=== PATIENT | male | born 1970 | race African-American/Black ===

== ENCOUNTER → 2016-10-28 | Outpatient (CLI) | payer BC ==
[~2016-10-28] MED LIST: ACET325T9 PO; AMLO10TA2 PO; GABA-586 PO; HYDR-2666 PO; IBUP200T77 PO; IOHEXOL 300 MG/ML 50 ML VIAL. IT ONE; LIDOCAINE 1%/EPI 1:100,000 20 ML VIAL. SQ ONE; LOSA100T6 PO
--- NOTE | 2016-10-28 11:54 | KCIC ---
CERVICAL MYELOGRAM INDICATION: Reason For Study Reason: NECK PAIN DOWN LEFT ARM WITH TINGLING X 6 MONTHS / Spl. Instructions: FT 1:34, IMAGES 3, 10ml OMNI 300 / History: INJURY JUNE 2009 Fluoroscopy time: 1:34 minutes 3 spot images and plain film radiograph were obtained TECHNIQUE: After discussion of the procedure, indications, risks, benefits, and alternatives the patient provided written and oral consent for the procedure. With the patient in a prone position on the fluoroscopy table, the L3-L4 interspace was selected for puncture and the overlying skin was prepped and draped in sterile fashion. Local anesthesia was achieved with approximately 3mL of buffered 1% lidocaine. Under intermittent fluoroscopic guidance, a 25 gauge Hardin needle was advanced into the thecal space with return of clear CSF. Approximately 9 mL of Omni 300 contrast was administered into the thecal space under intermittent fluoroscopic observation. The needle was removed and pressure applied until hemostasis was achieved. The patient's head was then lowered until contrast was visualized to reach the cervical level. The table was then brought back to baseline. The patient was sent to CT for scanning through the cervical spine. The patient tolerated the procedure well without immediate complication. Post myelographic images demonstrate contrast within the thecal sac. There are ventral epidural filling defects at most levels of the cervical spine. There is also a filling defect on the right the level of C6-C7. IMPRESSION: Technically successful fluoroscopy guided intrathecal injection of contrast, to be followed by CT myelogram of the cervical spine. Electronically signed by: Eric Boogie (Oct 28, 2016 11:53:06)
--- NOTE | 2016-10-28 12:05 | KCIC ---
PQRS STATEMENT One or more of the following individualized dose reduction techniques were utilized for this study:1.Automated exposure control. 2.Adjustment of the mA and/orkVaccording to patient size. 3.Use of iterative reconstruction technique CT cervical myelogram Indication: Reason For Study Reason: CERVICAL RADICULOPATHY / Spl. Instructions: / History: Neck pain w/Lt radiculopathy for 6 months. Injured Jun 2009 Technique: Multiple contiguous axial images were obtained through the cervical spine after intrathecal administration of iodinated contrast. Coronal and sagittal reformations were created. Findings: There is straightening of the cervical lordosis. Alignment of the occipital condyles and lateral masses of C1 is within normal limits. The odontoid is intact. There is no cervical spine fracture. No perching of the facets. There is at least mild degenerative disc height loss at all levels. Vertebral body heights are maintained. Cord is normal in caliber. At C2-3 there is no spinal stenosis. C3-4 there is no spinal stenosis. At C4-5 there is mild bilateral uncovertebral hypertrophy but no significant spinal stenosis. At C5-C6 there is a disc osteophyte complex which abuts the ventral surface of the cord but does not cause mass effect upon it. There is also moderate to severe bilateral foraminal stenosis from uncovertebral hypertrophy. This appears slightly more pronounced on the left. Correlate for C6 radiculopathy. At C6-C7 there is moderate to severe right foraminal stenosis from uncovertebral hypertrophy. There also appears to be a soft tissue component. Correlate for right C7 radiculopathy. At C7-T1 there is moderate bilateral foraminal stenosis from uncovertebral hypertrophy. Correlate for C8 radiculopathy. Impression: Multilevel degenerative disc disease with varying degrees of neural foraminal stenosis from uncovertebral hypertrophy detailed at each level above. Electronically signed by: Eric Boogie (Oct 28, 2016 12:04:02)
== END | disposition home or self-care (01) ==
LOC: KCIC 09:11
PROVIDERS: ATTEND Neurological Surgery
DX: M48.02 Spinal stenosis, cervical region (principal); M50.30 Other cervical disc degeneration, unspecified cervical region; M25.78 Osteophyte, vertebrae
CPT/HCPCS: 72126; 72240; J3490; Q9967